=== PATIENT | male | born 1945 | race Caucasian/White ===

== ENCOUNTER 2024-07-26 13:16 | Outpatient (AMB) | payer MEDICARE, SELFPAY ==
--- NOTE | 2024-07-26 13:43 | MHC.OFFVIS ---
Intake Visit Reasons: [employer]/PCP referral for carotid stenosis Intake Note: New patient presents for carotid stenosis. He gets light headed when standing. No dizziness. Accompanied by: Spouse Allergies lisinopril Allergy (Mild, Verified 07/26/24 13:45) Unknown HPI HPI E [employer]/PCP referral for carotid stenosis: Details: The patient is a 79-year-old male presenting with lightheadedness. He describes episodes of lightheadedness occurring during activities such as standing and walking. The symptoms began last fall and have become more noticeable lately, although they do not cause dizziness or balance issues. His past medical history includes a successful repair of retinal tears last February, following issues with vitreous detachment. The carotid ultrasound and CT scan revealed stenosis in the left vertebral artery, but his primary concern remains the persistent lightheadedness. He has not smoked in over four decades, does not have diabetes, and there is no reported history of significant cardiovascular incidents. He now presents for vascular evaluation Review of Systems Const All systems reviewed & are unremarkable except as noted in HPI and below Reports no additional complaints ENT Reports Normal hearing present Card Denies chest pain, Denies chest pain at rest, Denies chest pain with activity and Denies pedal edema Resp Denies cough GI Denies abdominal pain Musc Denies abnormal gait, Denies muscle cramps and Denies radiating pain into limb Skin/Breast Denies skin ulcer and Denies wounds Neuro Reports Normal hearing present and Denies abnormal gait Psych Reports no additional complaints Physical Exam Const General: cooperative, healthy appearing and comfortable Orientation/consciousness: oriented to person, oriented to place and oriented to time HEENT Head: Yes normal to inspection Neck Neck: Yes normal visual inspection Carotids: no bruits Chest Chest palpation & inspection: normal inspection of the chest Resp Effort & Inspection: normal respiratory effort and able to speak in complete sentences Auscultation: clear to auscultation bilaterally, no crackles, no rales, no rhonchi and no wheezes Cardio Rate: regular rate Rhythm: regular rhythm Heart sounds: S1 normal heart sound present and S2 normal heart sound present Bruits: no carotid bruits Peripheral pulses: Peripheral pulses 2+ throughout GI Inspection: Yes normal to inspection Skin Wounds: no wounds Hair: normal Neuro General: oriented to person, oriented to place and oriented to time Cranial nerves: Yes CN's II-XII intact bilaterally and Yes Normal hearing present Cognition (Neuro): normal cognition Motor exam (neuro): 5 motor strength present throughout Extrem Other: venous exam: No significant superficial varicosities or spider telangiectasias, minimal edema General: No clubbing, No cyanosis and No edema Psych Appearance: grossly normal Mental Status: mental status grossly normal Speech and movement: Normal speech and movement present Results Reviewed Results Reviewed: Carotid ultrasound dated 05/27/2024 had suboptimal in visualization cervical arteries. Subsequent to that CAT scan was obtained on 06/10/2024 and this demonstrated no evidence of infarct. No significant stenosis of the carotid arteries. Irregular beaded appearance of left vertebral artery. Assessment & Plan Assessment & Plan (1) Carotid stenosis: Code(s): I65.29 - Occlusion and stenosis of unspecified carotid artery Category: Medical Qualifiers: Laterality: bilateral Qualified Code(s): I65.23 - Occlusion and stenosis of bilateral carotid arteries Plan: I discussed with the patient that the left vertebral artery stenosis, detected in the imaging, is not significantly impacting the carotid circulation to cause the present symptoms. I explained the rationale for consulting an ENT specialist to review potential ear-related causes for his balance symptoms. The necessity of starting a daily baby aspirin was articulated in light of his past smoking history and current plaque presence in vascular imaging. I outlined that a repeat ultrasound will be performed in six months to monitor any changes. Risk-benefit considerations and the non-emergent nature of the findings were addressed, emphasizing that there are no immediate threats to life. Should symptoms continue ENT consultation may benefit. I do not think the vertebral is contributing this and this may even be an element of fibromuscular dysplasia. Once again I do not think this is related to his balance symptoms. He will follow up with us in 6 months time. Orders: Orders US carotid duplex BI 6 Months I65.23 - Occlusion and stenosis of bilateral carotid arteries Coding Level of Care Code Est Pt Level 4 (61774) Complex EM visit Add On G2211 Diagnoses Bilateral carotid artery stenosis I65.23 Laterality: bilateral
== END 2024-07-26 14:24 | disposition home or self-care (01) ==
LOC: HO.HVS 13:16
PROVIDERS: PCP Internal Medicine; Visit Provider Surgery Vascular Surgery
DX: I65.23 Occlusion and stenosis of bilateral carotid arteries (principal)
CPT/HCPCS: 99214; G2211

== ENCOUNTER → 2024-07-26 13:16 | Outpatient (BNVA) | payer MEDICARE, SELFPAY | PROVIDERS: PCP Internal Medicine; Visit Provider Surgery Vascular Surgery | DX: I65.23 Occlusion and stenosis of bilateral carotid arteries (principal) | CPT/HCPCS: 99212 ==

== ENCOUNTER 2025-01-26 11:30 | Outpatient (REF) | payer MEDICARE, SELFPAY ==
--- NOTE | ~2025-01-26 | US_ITS ---
CLINICAL HISTORY: I65.23 - Occlusion and stenosis of bilateral carotid arteries US Bilateral Carotid Duplex Comparison: None provided Findings: No significant plaque within the common carotid arteries. Minimal plaque within the carotid bulbs. Color doppler and spectral tracings normal. Peak systolic velocities: Right CCA: 182 cm/s. Right ICA: 100 cm/s. ICA/CCA ratio: 0.4. Right ECA: Unremarkable. Right vertebral artery flow antegrade. Left CCA: 99 cm/s. Left ICA: 123 cm/s. ICA/CCA ratio: 0.6. Left ECA: Unremarkable. Left vertebral artery flow antegrade. IMPRESSION: Normal carotid velocities, no significant stenosis (0-49% stenosis). This document has been electronically signed by: Prosper Roa MD on 01/27/2025 10:43:44
--- OUTSIDE RECORDS SUMMARY | 2025-01-26 14:50 | XMS_ITS | Clinical Summary ---
Author Organization [facility] Address [address] [address] Phone Care Team Providers Care Janitorial Supervisor Name Role Phone Orlando Simon MD Primary Care Provider [phone] Noel Nicholson MD Unavailable [phone] Cuong Gonsales MD Unavailable [phone] Prosper Burgess MD Unavailable [phone] Abdi Lopez MD Unavailable [phone] MyBeau hong MD Unavailable [phone] Allergies Active Allergy Reactions Criticality Noted Date Comments Lisinopril Angioedema High 09/16/2016 Other reaction(s): angioedema Medications Medication-Free Text Fish Oil 1200 MG Capsule, Si capsule Orally Once a day Active balsalazide (COLAZAL) 750 mg capsule 3 tabs 3 times a day Active polycarbophil (FIBERCON) 625 mg tablet Take 1 tablet by mouth 2 (two) times a day. Active MULTIVIT-MINERALS/FA/L YCOPENE (ONE-A-DAY MEN'S ORAL) ONE DAILY Orally Active tamsulosin (FLOMAX) 0.4 mg Cp24 Take 0.4 mg by mouth daily. Active Ca cit-D3-mag#11-zinc-cup r-man-bor (CALTRATE 600+D) 600 mg calcium- 800 unit-50 mg Tab Take 2 tablets by mouth daily. Active amoxicillin (AMOXIL) 500 MG capsuleIndications:S/P hip replacement, left Take 2 capsules (1,000 mg total) by mouth once as needed. Take 2 capsules 1 hour prior to dental appointment 2 capsule 3 2020 Active acetaminophen (TYLENOL) 650 MG CR tablet Take 1,300 mg by mouth 2 (two) times a day. Active latanoprost (XALATAN) 0.005 % ophthalmic solution INSTILL ONE DROP INTO LEFT EYE AT BEDTIME 2021 Active tadalafiL (CIALIS, ADCIRCA) 20 MG tabletIndications:Erec tile dysfunction Take 1 tablet (20 mg total) by mouth daily as needed. 20 tablet 1 2021 Active aspirin 81 MG EC tablet Take 81 mg by mouth daily. Active LORazepam (ATIVAN) 0.5 MG tabletIndications:Anxi ety about treatment Take 1 tablet (0.5 mg total) by mouth every 6 (six) hours as needed for anxiety. 5 tablet 2024 Active Additional Information Patient not taking.Reported on 12/21/2024 hydroCHLOROthiazide 25 MG tablet TAKE 1 TABLET BY MOUTH EVERY DAY 90 tablet 3 2024 Active prednisoLONE acetate (PRED FORTE) 1 % ophthalmic suspension 2024 Active valsartan (DIOVAN) 320 MG tabletIndications:Esse ntial hypertension TAKE 1 TABLET BY MOUTH DAILY 90 tablet 3 2024 Active pravastatin (PRAVACHOL) 40 MG tabletIndications:Pure hypercholesterolemia TAKE 1 TABLET BY MOUTH DAILY 90 tablet 3 2024 Active amLODIPine (NORVASC) 5 MG tabletIndications:Esse ntial hypertension TAKE 1 TABLET BY MOUTH TWICE A DAY 180 tablet 3 2024 Active amLODIPine (NORVASC) 5 MG tabletIndications:Esse ntial hypertension take 1 tablet by mouth twice a day 180 tablet 3 01/09 Discontinued Active Problems Problem Noted Date Diagnosed Date Right retinal detachment 12/21/2024 Assessment & Plan (12/21/2024 11:56 AM EDT): History of right sided retinal detachment with 2 previous vitrectomy surgeries which were uncomplicated initially but ultimately led to the recurrence of the detachment. The surgery is scheduled on 01/09/2025 with [facility]. His chronic medical conditions are well-managed including his hypertension, hyperlipidemia, ulcerative colitis, and polymyalgia rheumatica. He takes his medications as prescribed without issues. On exam he is hemodynamically stable, lungs are clear and heart is regular rate and rhythm with no murmurs rubs or gallops. EKG was obtained in the office today due to history of right bundle branch block and a vague history of a first- degree AV block, right bundle branch block remained stable in lead V2 but there is no evidence of a first-degree AV block. No evidence of arrhythmias or ST elevations. No lab work is indicated today. I believe that he is cleared to move forward with his upcoming surgery. AUB-HAS2: 1.6% risk of adverse event Chirag: Low risk, 0.4% ACP: Low risk EMAPO: Low risk, less than 3% Class 1 obesity due to exces s calories with serious comorbidity and body mass index (BMI) of 30.0 to 30.9 in adult 06/17/2024 Assessment & Plan (07/17/2024 8:13 PM EDT): Continue diligent portion control particularly in view of gaining 3 pounds from 187 on 02/05/2024 up to 190 today. Limit concentrated sugars, saturated fats and calories in the diet. Keep well-hydrated. If unable to achieve expected goal consider formal dietary/nutritional support. 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 May need to consider formal PT if not better. Topical products such as Arnica, Biofreeze, Aspercreme, Voltaren versus medicated patches such as Salonpas or IcyHot patch may provide additional benefit. If no improvement despite above measures may need to consider local steroid injection COVID-19 02/19/2022 Assessment & Plan (02/19/2022 1:38 PM EST): Overall with mild to moderate symptoms Educated patient regarding natural course of Covid 19, self-quarantine, Supportive Care for Symptoms, Educated regarding risks and benefits of Paxlovid (I.e. no data on potential short/half-way side effects) It does interact with his Tamsulosin, Prednisone and Cialis. I've asked him to hold his Tamsulosin and Cialis till he's done with the Paxolovid However, I told him that he should continue the Prednisone for the PMR. We will monitor for any issues To ER for severe sxs Call if any issues. Patient verbalized understanding and agreement of the above Rotator cuff arthropathy, left 09/27/2021 Assessment & Plan (10/14/2021 11:49 AM EDT): Avoid repetitive pulling or pushing with his shoulders. Use warm packs versus warm shower prior to gentle, regular exercise routine involving climbing the wall and pendulum exercises. Call if symptoms worsening or not improving after at least 3-4 weeks of daily exercising to consider formal PT and/or local steroid injection. S/P hip replacement, left 12/27/2020 Right bundle branch block (RBBB) 11/28/2020 Assessment & Plan (11/28/2020 2:13 PM EDT): Right bundle branch noted on EKG today, unchanged from previous per patient Family history of right bundle branch block 11/11 Arthritis of left hip 11/28/2020 Assessment & Plan (11/28/2020 2:19 PM EDT): Severe arthritis of the left hip with scheduled total left hip arthroplasty December 27 planned elective surgery. EKG showing unchanged right bundle branch block but otherwise no acute or chronic ischemic changes, recent blood work showing good kidney and liver function, normal blood sugar or close to normal. Given his history of ulcerative colitis we would like to obtain a repeat CBC to assess for anemia of chronic condition but also white blood cell count and platelet count. The most recent CBC was done back in September. We will also check a INR/PT as part of the preop work-up. Barring that these labs come back pathological, we feel the patient is a good candidate for the upcoming surgery and does not require any further cardiovascular work-up. He may prior to the surgery 7 days before hand stop the aspirin. He should continue his antihypertensives perioperatively. We note that his ulcerative colitis is currently quiescent. 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 Daily calcium and vitamin D supplementation. Regular weightbearing exercises. Fall prevention strategies. Monitor for multiple side effects including but not limited to mood swings, increased intraocular and systemic pressure, diabetes, osteoporosis, fluid retention, increased appetite, risk of infection, bruising, hair thinning etc. Assessment & Plan (12/15/2023 10:18 AM EDT): Gently taper once improved clinically as tolerated. Daily calcium and vitamin D supplementation. Regular weightbearing exercises. Fall prevention strategies. Monitor for multiple side effects including but not limited to mood swings, increased intraocular and systemic pressure, diabetes, osteoporosis, fluid retention, increased appetite, risk of infection, bruising, hair thinning etc. Assessment & Plan (03/23/2023 10:25 AM EST): Gently taper as tolerated. Daily calcium and vitamin D supplementation. Regular weightbearing exercises. Fall prevention strategies. Monitor for multiple side effects including but not limited to creased risk of infection, hips, knees or jaw osteonecrosis, mood swings, increased intraocular and systemic pressure, diabetes, osteoporosis, fluid retention, increased appetite, bruising, hair thinning etc. Assessment & Plan (10/20/2022 2:52 PM EDT): Gently taper as tolerated. Daily calcium and vitamin D supplementation. Regular weightbearing exercises. Fall prevention strategies. Monitor for multiple side effects including but not limited to creased risk of infection, hips, knees or jaw osteonecrosis, mood swings, increased intraocular and systemic pressure, diabetes, osteoporosis, fluid retention, increased appetite, bruising, hair thinning etc. Assessment & Plan (06/18/2022 12:33 PM EST): Gently taper as tolerated. Daily calcium and vitamin D supplementation. Regular weightbearing exercises. Fall prevention strategies. Monitor for multiple side effects including but not limited to increased risk of hips, knees and jaw osteonecrosis, mood swings, increased intraocular and systemic pressure, diabetes, osteoporosis, fluid retention, increased appetite, risk of infection, bruising, hair thinning etc. Assessment & Plan (03/26/2022 11:16 AM EST): Gently taper as tolerated. Daily calcium and vitamin D supplementation. Regular weightbearing exercises. Fall prevention strategies. Monitor for multiple side effects including but not limited to increased risk of hips, knees and jaw osteonecrosis, mood swings, increased intraocular and systemic pressure, diabetes, osteoporosis, fluid retention, increased appetite, risk of infection, bruising, hair thinning etc. Assessment & Plan (05/30/2021 11:41 AM EST): Gently taper as tolerated. Daily calcium and vitamin D supplementation. Regular weightbearing exercises. Fall prevention strategies. Monitor for multiple side effects including but not limited to increased risk of hips, knees, jaw osteonecrosis, mood swings, increased intraocular and systemic pressure, diabetes, osteoporosis, fluid retention, increased appetite, risk of infection, bruising, hair thinning etc. Assessment & Plan (03/17/2021 6:03 PM EST): Gently taper as tolerated. Daily calcium and vitamin D supplementation. Regular weightbearing exercises. Fall prevention strategies. Monitor for multiple side effects including but not limited to increased risk of hips, knees, jaw osteonecrosis, mood swings, increased intraocular and systemic pressure, diabetes, osteoporosis, fluid retention, increased appetite, risk of infection, bruising, hair thinning etc. Assessment & Plan (12/04/2020 10:22 PM EDT): Gently taper as tolerated. Daily calcium and vitamin D supplementation. Regular weightbearing exercises. Fall prevention strategies. Monitor for multiple side effects including but not limited to increased risk of hips, knees and jaw osteonecrosis, mood swings, increased intraocular and systemic pressure, diabetes, osteoporosis, fluid retention, increased appetite, risk of infection, bruising, hair thinning etc. On statin therapy 11/23/2020 Assessment & Plan (06/17/2024 4:23 PM EST): Monitor for muscle tenderness, swelling and weakness Assessment & Plan (02/27/2022 4:15 PM EST): Monitor for muscle tenderness, swelling and weakness Assessment & Plan (09/27/2021 3:52 PM EDT): Monitor for muscle tenderness, swelling and weakness Assessment & Plan (05/30/2021 11:42 AM EST): Take the lowest dose, with least frequency, for shortest time. Remember to take it always with food. Favor topical over oral preparations. Assessment & Plan (02/27/2021 12:32 PM EST): Monitor for muscle tenderness, swelling and weakness Assessment & Plan (12/04/2020 10:23 PM EDT): Monitor for muscle tenderness, swelling and weakness Primary osteoarthritis involving multiple joints 03/14/2020 Assessment & Plan (06/17/2024 4:22 PM EST): Joint protection, energy conservation. Gentle, regular exercise routine preferably in a warm pool to improve muscle strength around hip girdle and position him better for postsurgical rehabilitation. Avoid falls, injuries, overuse. Keep body weight in ideal range for his height. He may benefit from topical cream such as Arnica, Biofreeze, Aspercreme versus medicated patches such as salonpas, icy hot patch 2-3 times daily and if necessary at bedtime x 3 weeks. Assessment & Plan (02/05/2024 10:09 AM EDT): Joint protection, energy conservation. Gentle, regular exercise routine preferably in a warm pool to improve muscle strength around hip girdle and position him better for postsurgical rehabilitation. Avoid falls, injuries, overuse. Keep body weight in ideal range for his height. He may benefit from topical cream such as Arnica, Biofreeze, Aspercreme versus medicated patches such as salonpas, icy hot patch 2-3 times daily and if necessary at bedtime x 3 weeks. Assessment & Plan (12/11/2023 9:51 AM EDT): Joint protection, energy conservation. Gentle, regular exercise routine preferably in a warm pool to improve muscle strength around hip girdle and position him better for postsurgical rehabilitation. Avoid falls, injuries, overuse. Keep body weight in ideal range for his height. He may benefit from topical cream such as Arnica, Biofreeze, Aspercreme versus medicated patches such as salonpas, icy hot patch 2-3 times daily and if necessary at bedtime x 3 weeks. Assessment & Plan (06/10/2023 8:45 AM EST): Joint protection, energy conservation. Gentle, regular exercise routine preferably in a warm pool to improve muscle strength around hip girdle and position him better for postsurgical rehabilitation. Avoid falls, injuries, overuse. Keep body weight in ideal range for his height. He may benefit from topical cream such as Arnica, Biofreeze, Aspercreme versus medicated patches such as salonpas, icy hot patch 2-3 times daily and if necessary at bedtime x 3 weeks. Assessment & Plan (03/23/2023 10:25 AM EST): Joint protection, energy conservation. Gentle, regular exercise routine preferably in a warm pool to improve muscle strength around hip girdle and position him better for postsurgical rehabilitation. Avoid falls, injuries, overuse. Keep body weight in ideal range for his height. He may benefit from topical cream such as Arnica, Biofreeze, Aspercreme versus medicated patches such as salonpas, icy hot patch 2-3 times daily and if necessary at bedtime x 3 weeks. Assessment & Plan (10/20/2022 2:39 PM EDT): Joint protection, energy conservation. Gentle, regular exercise routine preferably in a warm pool to improve muscle strength around hip girdle and position him better for postsurgical rehabilitation. Avoid falls, injuries, overuse. Keep body weight in ideal range for his height. He may benefit from topical cream such as Arnica, Biofreeze, Aspercreme versus medicated patches such as salonpas, icy hot patch 2-3 times daily and if necessary at bedtime x 3 weeks. Assessment & Plan (06/18/2022 12:32 PM EST): Joint protection, energy conservation. Gentle, regular exercise routine preferably in a warm pool to improve muscle strength around hip girdle and position him better for postsurgical rehabilitation. Avoid falls, injuries, overuse. Keep body weight in ideal range for his height. He may benefit from topical cream such as Arnica, Biofreeze, Aspercreme versus medicated patches such as salonpas, icy hot patch 2-3 times daily and if necessary at bedtime x 3 weeks. Assessment & Plan (02/27/2022 4:13 PM EST): Joint protection, energy conservation. Gentle, regular exercise routine preferably in a warm pool to improve muscle strength around hip girdle and position him better for postsurgical rehabilitation. Avoid falls, injuries, overuse. Keep body weight in ideal range for his height. He may benefit from topical cream such as Arnica, Biofreeze, Aspercreme versus medicated patches such as salonpas, icy hot patch 2-3 times daily and if necessary at bedtime x 3 weeks. Assessment & Plan (09/27/2021 3:53 PM EDT): Joint protection, energy conservation. Gentle, regular exercise routine preferably in a warm pool to improve muscle strength around hip girdle and position him better for postsurgical rehabilitation. Avoid falls, injuries, overuse. Keep body weight in ideal range for his height. He may benefit from topical cream such as Arnica, Biofreeze, Aspercreme versus medicated patches such as salonpas, icy hot patch 2-3 times daily and if necessary at bedtime x 3 weeks. Assessment & Plan (05/30/2021 11:41 AM EST): Joint protection, energy conservation. Gentle, regular exercise routine preferably in a warm pool to improve muscle strength around hip girdle and position him better for postsurgical rehabilitation. Avoid falls, injuries, overuse. Keep body weight in ideal range for his height. He may benefit from topical cream such as Arnica, Biofreeze, Aspercreme versus medicated patches such as salonpas, icy hot patch 2-3 times daily and if necessary at bedtime x 3 weeks. Assessment & Plan (02/27/2021 12:31 PM EST): Joint protection, energy conservation. Gentle, regular exercise routine preferably in a warm pool to improve muscle strength around hip girdle and position him better for postsurgical rehabilitation. Avoid falls, injuries, overuse. Keep body weight in ideal range for his height. He may benefit from topical cream such as Arnica, Biofreeze, Aspercreme versus medicated patches such as salonpas, icy hot patch 2-3 times daily and if necessary at bedtime x 3 weeks. Assessment & Plan (12/04/2020 10:20 PM EDT): Joint protection, energy conservation. Gentle, regular exercise routine preferably in a warm pool to improve muscle strength around hip girdle and position him better for postsurgical rehabilitation. Avoid falls, injuries, overuse. Keep body weight in ideal range for his height. He may benefit from topical cream such as Arnica, Biofreeze, Aspercreme versus medicated patches such as salonpas, icy hot patch 2-3 times daily and if necessary at bedtime x 3 weeks. Assessment & Plan (08/24/2020 3:40 PM EDT): Continue Tylenol Arthritis 650 mg Take one pill PO every 8 hours as needed for OA pain relief of hands, shoulders. Pain of left hand 03/14/2020 Polymyalgia rheumatica 03/01/2019 Assessment & Plan (07/17/2024 8:12 PM EDT): Clinically appears stable though labs reveal mildly elevated CRP. No signs of PMR or GCA. He is symptom-free without prednisone and understands the need for close monitoring in case symptoms reappear. Call if problems or questions. Continue gentle, regular exercise routine, daily walking, fall and fracture prevention strategies. I reviewed with him need for close monitoring possible signs of temporal arteritis such as sudden, severe headache, visual abnormalities or loss, jaw or tongue claudication, fevers, chills night sweats, unexplained weight loss etc. He is educated to call with above concerns and start prednisone 60 mg if severe headache with visual abnormalities or jaw claudication develop. He has no symptoms or radiographic changes suggestive for pulmonary TB. Assessment & Plan (02/05/2024 10:19 AM EDT): Clinically appears stable though labs reveal mildly elevated ESR. He is willing to carefully taper prednisone as tolerated by 1 mg every 2-4 weeks. He requests another pamphlet on Kevzara to review again as steroid sparing medication. I previously provided him with pamphlet on methotrexate on previous visit that may need to be prescribed as a steroid sparing medication versus newly approved biologic DMARD Kevzara (sarilumab)-pamphlet provided. I briefly reviewed with him most frequent side effects of methotrexate including but not limited to increased risk of liver function test elevation, pneumonitis, anemia, leukopenia, increased risk of infection etc. He was informed about need for refraining from alcohol drinking and close monitoring while on methotrexate. Prior to starting methotrexate versus Kevzara (sarilumab) he should be up-to-date on yearly influenza, pneumonia, Shingrix, hepatitis B, COVID-19 and tetanus vaccinations. He fulfilled that requirements and wishes to review again information on Kevzara before adding it to his regimen. I have honestly told him that I cannot assure him that it would prevent another bout of PMR in November 2024 but it may. Call if problems or questions. Continue gentle, regular exercise routine, daily walking, fall and fracture prevention strategies. I reviewed with him need for close monitoring possible signs of temporal arteritis such as sudden, severe headache, visual abnormalities or loss, jaw or tongue claudication, fevers, chills night sweats, unexplained weight loss etc. He is educated to call with above concerns and start prednisone 60 mg if severe headache with visual abnormalities or jaw claudication develop. He has no symptoms or radiographic changes suggestive for pulmonary TB. Assessment & Plan (12/15/2023 10:13 AM EDT): He managed well without any prednisone until a month ago but reports intolerable pain and stiffness within his arms and hands and requests restarting prednisone. He denies any episodes of headaches, visual abnormalities, jaw or tongue claudication. I gave him prescription for prednisone 5 mg to be taken every morning with breakfast and asking her to call back on Thursday- around 2-3 p.m. to report his response. I previously provided him with pamphlet on methotrexate on previous visit that may need to be prescribed as a steroid sparing medication versus newly approved biologic DMARD Kevzara (sarilumab)-pamphlet provided. I briefly reviewed with him most frequent side effects of methotrexate including but not limited to increased risk of liver function test elevation, pneumonitis, anemia, leukopenia, increased risk of infection etc. He was informed about need for refraining from alcohol drinking and close monitoring while on methotrexate. Prior to starting methotrexate versus Kevzara (sarilumab) he should be up-to-date on yearly influenza, pneumonia, Shingrix, hepatitis B, COVID-19 and tetanus vaccinations. Call if problems or questions. Continue gentle, regular exercise routine, daily walking, fall and fracture prevention strategies. I reviewed with him need for close monitoring possible signs of temporal arteritis such as sudden, severe headache, visual abnormalities or loss, jaw or tongue claudication, fevers, chills night sweats, unexplained weight loss etc. He is educated to call with above concerns and start prednisone 60 mg if severe headache with visual abnormalities or jaw claudication develop. He has no symptoms or radiographic changes suggestive for pulmonary TB. Assessment & Plan (06/10/2023 8:57 AM EST): He manages well without any prednisone for almost a month now and denies any episodes of headaches, visual abnormalities, jaw or tongue claudication. I previously provided him with pamphlet on methotrexate on previous visit that may need to be prescribed as a steroid sparing medication should he have difficulty tapering of prednisone again or consideration with next flare. I briefly reviewed with him most frequent side effects of methotrexate including but not limited to increased risk of liver function test elevation, pneumonitis, anemia, leukopenia, increased risk of infection etc. He was informed about need for refraining from alcohol drinking and close monitoring while on methotrexate. Prior to starting methotrexate he should be up-to-date on yearly influenza, pneumonia, Shingrix, hepatitis B, COVID-19 and tetanus sensation. Call if problems or questions. Since he manages well without prednisone he is not going to start any methotrexate. Continue gentle, regular exercise routine, daily walking, fall and fracture prevention strategies. I reviewed with him need for close monitoring possible signs of temporal arteritis such as sudden, severe headache, visual abnormalities or loss, jaw or tongue claudication, fevers, chills night sweats, unexplained weight loss etc. He is educated to call with above concerns and start prednisone 60 mg if severe headache with visual abnormalities or jaw claudication develop. He has no symptoms or radiographic changes suggestive for pulmonary TB. Assessment & Plan (03/23/2023 9:50 PM EST): Carefully taper prednisone by 1 mg every 1-2 weeks as tolerated-see details on the separate instruction sheet. Call if problems or questions. I provided him with pamphlet on methotrexate on previous visit that may need to be prescribed as a steroid sparing medication should he have difficulty tapering of prednisone again. I briefly reviewed with him most frequent side effects of methotrexate including but not limited to increased risk of liver function test elevation, pneumonitis, anemia, leukopenia, increased risk of infection etc. He is informed about need for refraining from alcohol drinking and close monitoring while on methotrexate. Prior to starting methotrexate he should be up-to-date on yearly influenza, pneumonia, Shingrix, hepatitis B, COVID-19 and tetanus sensation. Call if problems or questions. Continue gentle, regular exercise routine, daily walking, fall and fracture prevention strategies. I reviewed with him need for close monitoring possible signs of temporal arteritis such as sudden, severe headache, visual abnormalities or loss, jaw or tongue claudication, fevers, chills night sweats, unexplained weight loss etc. 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 Assessment & Plan (10/20/2022 2:51 PM EDT): Carefully continue current 3 mg prednisone with breakfast x 3-4 wks if no worsening start tapering by 1 mg every 3-4 weeks as tolerated Call if problems or questions. I provided him with pamphlet on methotrexate on previous visit that may need to be prescribed as a steroid sparing medication should he have difficulty tapering of prednisone again. I briefly reviewed with him most frequent side effects of methotrexate including but not limited to increased risk of liver function test elevation, pneumonitis, anemia, leukopenia, increased risk of infection etc. He is informed about need for refraining from alcohol drinking and close monitoring while on methotrexate. Prior to starting methotrexate he should be up-to-date on yearly influenza, pneumonia, Shingrix, hepatitis B, COVID-19 and tetanus sensation. Call if problems or questions. Continue gentle, regular exercise routine, daily walking, fall and fracture prevention strategies. I reviewed with him need for close monitoring possible signs of temporal arteritis such as sudden, severe headache, visual abnormalities or loss, jaw or tongue claudication, fevers, chills night sweats, unexplained weight loss etc. Assessment & Plan (07/01/2022 2:12 PM EDT): Carefully continue current 5 mg prednisone with breakfast x 3-4 wks if no worsening start tapering by 1 mg every 3-4 weeks as tolerated-see details on a separate instruction sheet with today's date. I provided him with pamphlet on methotrexate that may need to be prescribed as a steroid sparing medication should he have difficulty tapering of prednisone again. I briefly reviewed with him most frequent side effects of methotrexate including but not limited to increased risk of liver function test elevation, pneumonitis, anemia, leukopenia, increased risk of infection etc. He is informed about need for refraining from alcohol drinking and close monitoring while on methotrexate. Prior to starting methotrexate he should be up-to-date on yearly influenza, pneumonia, Shingrix, hepatitis B, COVID-19 and tetanus sensation. Call if problems or questions. Continue gentle, regular exercise routine, daily walking, fall and fracture prevention strategies. I reviewed with him need for close monitoring possible signs of temporal arteritis such as sudden, severe headache, visual abnormalities or loss, jaw or tongue claudication, fevers, chills night sweats, unexplained weight loss etc. Assessment & Plan (03/26/2022 11:21 AM EST): Carefully continue current 7.5 mg prednisone with breakfast until 03/23/2022 then if no worsening start tapering by 1-1.5 mg every 3-4 weeks as tolerated-see details on a separate instruction sheet with today's date. I provided him with pamphlet on methotrexate that may need to be prescribed as a steroid sparing medication should he have difficulty tapering of prednisone again. I briefly reviewed with him most frequent side effects of methotrexate including but not limited to increased risk of liver function test elevation, pneumonitis, anemia, leukopenia, increased risk of infection etc. He is informed about need for refraining from alcohol drinking and close monitoring while on methotrexate. Prior to starting methotrexate he should be up-to-date on yearly influenza, pneumonia, Shingrix, hepatitis B, COVID-19 and tetanus sensation. Call if problems or questions. Continue gentle, regular exercise routine, daily walking, fall and fracture prevention strategies. I reviewed with him need for close monitoring possible signs of temporal arteritis such as sudden, severe headache, visual abnormalities or loss, jaw or tongue claudication, fevers, chills night sweats, unexplained weight loss etc. Assessment & Plan (10/14/2021 11:48 AM EDT): He is ready to continue gentle, regular exercise routine, daily walking, fall and fracture prevention strategies since he does not require prednisone. I reviewed with him need for close monitoring possible signs of temporal arteritis such as sudden, severe headache, visual abnormalities or loss, jaw or tongue claudication, fevers, chills night sweats, unexplained weight loss etc. We both hope that he will be able to enjoy his health without return of either PMR or GCA/TA Assessment & Plan (06/04/2021 8:46 AM EST): He is ready to gently taper prednisone down by 1 mg every 3-4 weeks as tolerated to complete cessation. I previously spoke to him about possible need for adding methotrexate as steroid sparing medication in case he redevelops flare while tapering prednisone below 3 mg daily. I provided him with pamphlet on its side effects and reviewed with him most frequent side effects including but not limited to risk of lung inflammation including damage, liver inflammation including failure, GI disturbance, mouth ulcers etc. He was asked to read the pamphlet and write his questions for discussion at next visit or if necessary earlier. We both hope that he will be able to taper prednisone smoothly and not have to start taking methotrexate. Assessment & Plan (03/17/2021 6:07 PM EST): He is ready to gently taper prednisone down by 1 mg every 3-4 weeks as tolerated. I spoke to him about possible need for adding methotrexate as steroid sparing medication in case he redevelops flare while tapering prednisone below 3 mg daily. I provided him with pamphlet on its side effects and reviewed with him most frequent side effects including but not limited to risk of lung inflammation including damage, liver inflammation including failure, GI disturbance, mouth ulcers etc. He is asked to read the pamphlet and write his questions for discussion at next visit or if necessary earlier. We both hope that he will be able to taper prednisone smoothly and not have to start taking methotrexate. Assessment & Plan (12/04/2020 10:19 PM EDT): He is ready to taper prednisone down to 5 mg starting on Thursday-11/26/2020 and decrease gently to 4 mg in 2-3 weeks. Subsequent decrease should be by 1 mg every 2-3 weeks as tolerated. I spoke to him about possible need for adding methotrexate as steroid sparing medication in case he redevelops flare while tapering prednisone below 3 mg daily. I provided him with pamphlet on its side effects and reviewed with him most frequent side effects including but not limited to risk of lung inflammation including damage, liver inflammation including failure, GI disturbance, mouth ulcers etc. He is asked to read the pamphlet and write his questions for discussion at next visit or if necessary earlier. Assessment & Plan (11/28/2020 2:16 PM EDT): Patient on a very low dose of prednisone at this time and level of inflammation according to his symptoms appears to be low. This should not be a factor on the upcoming surgery. Assessment & Plan (08/24/2020 3:40 PM EDT): Patient taking Prednisone 3 mg PO daily for PMR therapy. He will continue to taper medication with taper schedule from PCP. Stable on exam today. BPH (benign prostatic hyperplasia) 08/31/2018 Assessment & Plan (02/19/2022 1:40 PM EST): As discussed, hold Tamsulosin due to possible drug-drug effect Adverse effect of angiotensin-converting enzyme inhibitor 08/18/2017 Allergic rhinitis 08/18/2017 Angioedema 08/18/2017 Male erectile disorder 08/18/2017 Erectile dysfunction 08/18/2017 Assessment & Plan (02/19/2022 1:42 PM EST): See above re cialis and drug drug interaction Essential hypertension 08/18/2017 Assessment & Plan (02/19/2022 1:39 PM EST): Patient to monitor for lightheadedness, etc. Stay hydrated Assessment & Plan (11/28/2020 2:13 PM EDT): Hypertension well controlled with current listed antihypertensives. Denies side effects No change to dosing. Low Sodium diet reinforced. Continue to monitor condition. Hypertension 08/18/2017 Hyperlipidemia 08/18/2017 Assessment & Plan (11/28/2020 2:14 PM EDT): Patient managed with pravastatin for dyslipidemia, most recent lipid profile within target range. Impaired fasting glucose 08/18/2017 Assessment & Plan (11/28/2020 2:15 PM EDT): Recent A1c at 6.1% in prediabetic range with history of prednisone for polymyalgia rheumatica. Recent dosing of prednisone tapered below 7.5 mg. We should follow the A1c at least every 6 months, counseled the patient on a diabetic diet regarding fiber intake, reduced intake of grains and Pasta, exercise when hip replacement occurs. Ulcerative colitis 08/18/2017 Assessment & Plan (06/17/2024 4:23 PM EST): Continue balsalazide as prescribed and close follow-up with pecan gatherer as scheduled Interval colonoscopy on 06/25/2023 was normal. Assessment & Plan (02/05/2024 10:09 AM EDT): Continue balsalazide as prescribed and close follow-up with pecan gatherer as scheduled Interval colonoscopy on 06/25/2023 was normal. Assessment & Plan (12/15/2023 10:17 AM EDT): Continue balsalazide as prescribed and close follow-up with pecan gatherer as scheduled Interval colonoscopy on 06/25/2023 was normal. Assessment & Plan (06/10/2023 8:46 AM EST): Continue balsalazide as prescribed and close follow-up with pecan gatherer as scheduled He is scheduled for interval colonoscopy on 06/25/2023. Assessment & Plan (03/23/2023 9:51 PM EST): Continue balsalazide as prescribed and close follow-up with pecan gatherer as scheduled He is scheduled for interval colonoscopy on 06/25/2023. Assessment & Plan (06/18/2022 12:33 PM EST): Continue balsalazide as prescribed and close follow-up with pecan gatherer as scheduled Assessment & Plan (02/27/2022 4:15 PM EST): Continue balsalazide as prescribed and close follow-up with pecan gatherer as scheduled Assessment & Plan (10/14/2021 11:49 AM EDT): Continue balsalazide as prescribed and close follow-up with pecan gatherer as scheduled Assessment & Plan (02/27/2021 12:31 PM EST): Continue balsalazide as prescribed and close follow-up with pecan gatherer as scheduled Assessment & Plan (12/04/2020 10:21 PM EDT): Continue balsalazide as prescribed and close follow-up with pecan gatherer as scheduled Pure hypercholesterolemia 08/18/2017 Osteoarthritis 08/18/2017 Nocturia 08/18/2017 Resolved Problems Problem Noted Date Diagnosed Date Resolved Date Aspirin long-term use 05/30/20212021 Assessment & Plan (05/30/2021 11:41 AM EST): Avoid falls, injuries and cuts. Monitor for excessive bruising and bleeding. Encounters Date Type Department Care Team Description 01/09/2025 Refneela Mccabe [facility] Internal Medicine [address] [place] [address] Orlando Simon MD Medication Refill 01/02/2025 8:28 AM EDT - 01/02/2025 11:59 PM EDT Hospital Encounter [facility] [address] [place] [address] Erinn Sheth MD Discharge Disposition: Home or Self Care 12/21/2024 11:20 AM EDT Office Visit [facility] Internal Medicine [address] [place] [address] Lissy Mena PA-C Right retinal detachment (Primary Dx) 12/21/2024 Telephone [facility] Internal Medicine [address] [place] [address] Orlando Simon MD Request For Order(s) 11/29/2024 Telephone [facility] Internal Medicine [address] [place] [address] Orlando Simon MD Pre-op Education/coordinat ion (Needs appt) 11/11/2024 Telephone [facility] Internal Medicine [address] [place] [address] Orlando Simon MD Referral 11/08/2024 Refill [facility] Internal Medicine [address] [place] [address] Orlando Simon MD Medication Refill from Last 3 Months Immunizations Immunization Administration Dates Next Due COVID-19 (Pre-02/02) Moderna Vaccine, mRNA, PF 06/27/2020,05/30/2020 INFLUENZA, SPLIT VIRUS, TRIV ALENT W/ PRESERVATIVE IM 01/17/2015,02/04/2012,03/03/2011 Influenza High-Dose Quadriva lent Preservative Free IM 12/02/2022,02/04/2022,12/28/2020 Influenza High-Dose Trivalen t Preservative Free IM 12/21/2023,12/31/2018,02/18/2018,01/21,01/06/2014,02/25/2013 Influenza Quadrivalent Adjuv anted Preservative Free IM 01/06/2020 Influenza, Unspecified Formulation 01/06/2020,,03/01/2008 Pneumococcal conjugate PCV13 12/11/2014 Pneumococcal polysaccharide PPSV23 09/03/2021, RSV Vaccine (monovalent, adjuvanted) 01/15/2024 Td (adult) 5 Lf Tetanus Toxo id, PF, Adsorbed 09/11/2001 Tdap 01/15/2024,10/17/2011 Zoster live 06/11/2008 Zoster recombinant 09/30/2021,07/22/2021 Family History Medical History Relation Comments Stroke Daughter 1 Diabetes Sister 2 Relation Status Comments Daughter 1 Alive had cva neuropat hy Daughter 2 Alive Father (Age 73) copd and chf Mother (Age 88) dementia Sister 1 (Age 65) bowel disease Sister 2 Social History Tobacco Use Types Packs/Day Years Used Date Smoking Tobacco: Former Cigarettes 1 25 0 08/06/1958 - 08/07/1983 Smokeless Tobacco: Never Tobacco Cessation:Counseling Given: Not Answered Comments:quit 1983 Alcohol Use Standard Drinks/Week Comments Yes 0 (1 standard drink = 0.6 oz pure alcohol) couple drinks (beer or liquor) once every few months, if that; socially Education Answer Date Recorded Are you interested in more education? Not on remberto e 08/08/2022 Are you concerned about learning? Not on file 08/08/2022 No 08/08/2022 No 08/08/2022 Digital Access Answer Date Recorded No 09/08/2022 No 09/08/2022 Reliable internet access at home? Not on file 09/08/2022 Device with a working camera? Not on file Intimate Partner Violence Answer Date R ecorded Denied Basic Needs Not on file 05/07/2024 In the past 12 months have y ou been in a relationship with a person who hurts, threatens, or tries to control you? No 05/07/2024 Worried food would run out Not on file 05/07 In the past 12 months have y ou been in a relationship with a person who hurts, threatens, or tries to control you? No 05/07/2024 Sex and Gender Information Value Date Recorded Sex Assigned at Male 08/22/2021 6:58 PM EDT Legal Sex Male 10:08 PM EDT Gender Identity Male 08/22/2021 6:58 PM EDT Sexual Orientation Straight 08/22/2021 6: 58 PM EDT Last Filed Vital Signs Vital Sign Reading Time Taken Comments Blood Pressure 138/72 12/21/2024 11:15 AM EDT Pulse 70 12/21/2024 11:15 AM EDT Temperature 36.2 C (97.2 F) 12/21/2024 11:15 AM EDT Respiratory Rate 17 12/21/2024 11:1 5 AM EDT Oxygen Saturation 94% 12/21/2024 11: 15 AM EDT Inhaled Oxygen Concentration - - Weight 86.1 kg (189 lb 14.4 oz) 025 11:15 AM EDT Height 168.2 cm (5' 6.22 ) 12/21/2024 1 1:15 AM EDT Body Mass Index 30.45 12/21/2024 11:15 AM EDT Plan of Treatment Upcoming Encounters Date Type Department Care Team (Late st Contact Info) Description 04/28/2025 1:30 PM EST Office Visit [facility] Internal Medicine [address] [place] [address] Orlando Simon MD [address] [place] [address] [email or web address] Health Maintenance Due Date Last Done Comments COLOGUARD 1990 FIT TEST 1990 FOBT 1990 SIGMOIDOSCOPY 1990 VIRTUAL COLONOSCOPY 1990 INFLUENZA VACCINE (#1) 2024 , 12/02/2022, 02/04/2022, Additional history exists COVID-19 VACCINE ( season) 2024 12/29/2023, 01/09/2023, 02/04/2022, Additional history exists DEPRESSION SCREENING 05/07/2025 05/07/2024 LIPID PANEL 06/02/2025 06/02/2024, 11/11, 09/19/2022, Additional history exists BLOOD PRESSURE 06/20/2025 12/21/2024 COLONOSCOPY 06/24/2025 06/25/2023, 03/0 10/2021, 06/17/2021, Additional history exists COLORECTAL CANCER SCREENING 06/24/2025 CREATININE LEVEL 01/02/2026 01/02/2025, , 06/02/2024, Additional history exists POTASSIUM LEVEL 01/02/2026 01/02/2025, 08/12, 06/02/2024, Additional history exists Adult Td,Tdap Booster 01/14/2034 01/15/2024 , 10/17/2011, 09/11/2001 HEPATITIS C SCREENING Completed 03/01/2019 PNEUMOCOCCAL VACCINES (50+ years) Completed 09/03/2021, 12/11/2014, 03/11/2010 ZOSTER VACCINES Completed 09/30/2021, 07/12, 06/11/2008 RSV VACCINE Completed 01/15/2024 SMOKING STATUS SCREENING (Once After 26 Yrs) Completed 12/21/2024 HEPATITIS A VACCINES Aged Out No long er eligible based on patient's age to complete this topic HIB VACCINES Aged Out No longer eligi ble based on patient's age to complete this topic MENINGOCOCCAL VACCINES (ACWY) Aged Out No longer eligible based on patient's age to complete this topic MENINGOCOCCAL VACCINES (B) Aged Out N o longer eligible based on patient's age to complete this topic Medical Devices Implanted Type Area Production Broacher Device Identifier Shelf Expiration Date Model / Serial / Lot Lens Lens Bilatera l: Eye Screw Bone 6.5x25mm Hip Acetabular Dome G7 Low Profile - [id number] Implanted:Qty: 1 on 12/27/2020 by Faisal Moyer MD at [facility] Left: Hip [employer] 09/20/2029 [id number] / / [id number] Screw Bone 6.5x40mm Hip Dome G7 Acetabular Low Profile - [id number] Implanted:Qty: 1 on 12/27/2020 by Faisal Moyer MD at [facility] Left: Hip [employer] 03/21/2030 [id number] / / [id number] Shell Acetabular 50mm 3 Hole G7 Osseoti Size D - [id number] Implanted:Qty: 1 on 12/27/2020 by Faisal Moyer MD at [facility] Left: Hip [employer] 09/16/2030 [id number] / / [id number] Hip Liner 36mm D Acetabular Neutral G7 Longevity - [id number] Implanted:Qty: 1 on 12/27/2020 by Faisal Moyer MD at [facility] Left: Hip [employer]RIST[employer]AL / DIV OF [employer]You 11/11/2023 [id number] / / [id number] Hip Stem 1.6t408at Echo Titanium Bimetric Porous Collarless Lateralized Offset Proximalimal - [id number] Implanted:Qty: 1 on 12/27/2020 by Faisal Moyer MD at [facility] Left: Hip [employer] 05/27/2028 [id number] / / [id number] Hip 6mm 36 Biolox Delta Ceramic Modular Plus - [id number] Implanted:Qty: 1 on 12/27/2020 by Faisal Moyer MD at [facility] Left: Hip [employer] 05/06/2028 [id number] / / [id number] Procedures Procedure Name Priority Date/Time Associated Diagnosis Comments COMPREHENSIVE METABOLIC PANEL Routine 01/02/2025 8:46 AM EDT Polymyalgia rheumatica [facility] current use of systemic steroids C-REACTIVE PROTEIN Routine 01/02/2025 8: 46 AM EDT Polymyalgia rheumatica [facility] current use of systemic steroids SEDIMENTATION RATE (ESR) Routine 01/02/2025 8:46 AM EDT Polymyalgia rheumatica [facility] current use of systemic steroids CBC AND DIFFERENTIAL Routine 01/02/2025 8:46 AM EDT 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 LIPID PANEL Routine 06/02/2024 8:05 AM EST Pure hypercholesterolemia HM COLONOSCOPY FOR RESULT ENTRY ONLY Routine 06/25/2023 11:12 AM EDT HEPATITIS C ANTIBODY, QUALITATIVE Routine 03/01/2019 9:41 AM EST Need for hepatitis C screening test from Last 3 Months or Most Recently Relevant to Health Maintenance Results * Comprehensive metabolic panel (01/02/2025 8:46 AM EDT) SODIUM 140 133 - 146 mmol/L [facility] POTASSIUM 4.3 3.3 - 5.1 mmol/L [facility] CHLORIDE 103 96 - 108 mmol/L [facility] CO2 25 21 - 35 mmol/L [facility] BUN 17 6 - 19 mg/dL [facility] CREATININE 0.90 0.5 - 1.5 mg/dL [facility] GLUCOSE 97 70 - 99 mg/dL [facility] ALBUMIN 4.1 3.9 - 4.8 g/dL [facility] TOTAL PROTEIN 7.1 6.5 - 8.0 g/dL [facility] CALCIUM 9.6 8.4 - 10.3 mg/dL [facility] ALKALINE PHOSPHATASE 92 39 - 117 U/L [facility] TOTAL BILIRUBIN 0.4 0.0 - 1.2 mg/dL [facility] AST 22 0 - 37 U/L [facility] ALT 17 0 - 40 U/L [facility] GLOBULIN 3.0 1 - 4.8 g/dL [facility] EGFR 87 >59 mL/min/1.7 3m2 [facility] Comment:Estimated glomerular filtration rate calculated using the CKD-EPI refit equation. ANION GAP 16 10 - 20 mmol/L [facility] Blood 01/02/2025 8:46 AM EDT 01/02/2025 8:47 AM EDT us Erinn Sheth MD LAB BLOOD ORDERABLES Fin al Result [facility] [address] [place] [address] * Sedimentation rate (ESR) (01/02/2025 8:46 AM EDT) ESR 13 0 - 20 mm/h [facility] Blood 01/02/2025 8:46 AM EDT 01/02/2025 8:47 AM EDT us Erinn Sheth MD LAB BLOOD ORDERABLES Fin al Result [facility] [address] [place] [address] * (ABNORMAL) CBC and differential (01/02/2025 8:46 AM EDT) WBC 7.09 4.00 - 11.00 K/uL [facility] RBC 5.10 4.50 - 5.90 M/uL [facility] HGB 14.7 13.5 - 17.5 g/dL [facility] HCT 46.1 41.0 - 53.0 % [facility] PLT 223 150 - 450 K/uL [facility] MCV 90.4 80.0 - 100.0 fL [facility] MCH 28.8 27.0 - 31.0 pg [facility] MCHC 31.9(L) 32.0 - 36.0 g/dL [facility] RDW 14.2 11.5 - 14.5 % [facility] MPV 9.6 8.4 - 12.0 fL [facility] NRBC 0.00 0.00 /100 WBCs [facility] ABSOLUTE NRBC 0.00 0.00 K/uL [facility] DIFF METHOD Auto [facility] NEUTS 75.5 48.0 - 76.0 % [facility] LYMPHS 10.4(L) 18.0 - 41.0 % [facility] MONOS 9.3 4.0 - 11.0 % [facility] EOS 3.9 0.0 - 5.0 % [facility] BASOS 0.8 0.0 - 1.5 % [facility] Granulocytes, immature (%) 0.1 0.0 - 0.9 % [facility] ABSOLUTE NEUTS 5.34 1.92 - 7.60 K/uL [facility] ABSOLUTE LYMPHS 0.74 0.72 - 4.10 K/uL [facility] ABSOLUTE MONOS 0.66 0.16 - 1.10 K/uL [facility] ABSOLUTE EOS 0.28 0.00 - 0.50 K/uL [facility] ABSOLUTE BASOS 0.06 0.00 - 0.15 K/uL [facility] Granulocytes, immature 0.01 0.00 - 0.09 K/uL [facility] Blood 01/02/2025 8:46 AM EDT 01/02/2025 8:47 AM EDT Erinn Sheth MD LAB BLOOD ORDERABLES Fin al Result Performing Organization Address City/[facility]/ZIP Co de Phone Number [address] [address] * C-Reactive Protein (01/02/2025 8:46 AM EDT) C REACTIVE PROTEIN <3.0 0.0 - 4.0 mg/L [facility] Blood 01/02/2025 8:46 AM EDT 01/02/2025 8:47 AM EDT Erinn Sheth MD LAB BLOOD ORDERABLES Fin al Result Performing Organization Address City/[facility] Co de Phone Number [address] [address] * Lipid panel (06/02/2024 8:05 AM EST) HDL 41 mg/dL [facility] Comment: Interpretation <40 mg/dL: Low HDL cholesterol (major risk factor for CHD) Greater than or equal to 60 mg/dL: High HDL cholesterol ( negative risk factor for CHD) HDL - cholesterol is affected by a number of factors, e.g. smoking, excerise, hormones, sex and age. CHOLESTEROL 150 0 - 240 mg/dL [facility] TRIGLYCERIDES 127 30 - 160 mg/dL [facility] LDL 84 50 - 129 mg/dL [facility] Comment: LDL levels in terms of risk for coronary heart disease: <100 mg/dL: Optimal 100-129 mg/dL: Near or above optimal 130-159 mg/dL: Borderline high 160-189 mg/dL: High >190 mg/dL: Very High CARDIAC RISK RATIO 3.7 3.4 - 5.0 C [facility] Blood 06/02/2024 8:05 AM EST 06/02/2024 8:14 AM EST Orlando Simon MD LAB BLOOD ORDERABLES Final Re sult Performing Organization Address City/[facility] Co de Phone Number [address] [address] * COLONOSCOPY FOR RESULT ENTRY ONLY (06/25/2023 11:12 AM EDT) Historical Provider HEALTH MAINTENANCE Edited Result - Final * Hepatitis C antibody, qualitative (03/01/2019 9:41 AM EST) HCV NON-REACTIV E NON-REACTI VE [facility] Blood 03/01/2019 9:41 AM EST 03/01/2019 9:45 AM EST Orlando Simon MD LAB BLOOD ORDERABLES Final Re sult Performing Organization Address [facility] Co de Phone Number [address] [address] from Last 3 Months or Most Recently Relevant to Health Maintenance Insurance [employer] P[employer]ED [employer] REPLACEMENT MEDICARE PART A & B [employer] REPLACEMENT MEDICARE PART A & [place] [address] [place] [address] MEDICARE PREFERRED HMO REPLACEMENT MEDICARE PART A & B [employer] REPLAC[employer] MEDICARE PART A & B [employer] REPLAC[employer] MEDICARE PART A & B [employer] REPLACEMENT [employer] REPLAC[employer] MEDICARE PART A & B [employer] REPLACEMENT MEDICARE PART A & B [employer] REPLACEMENT MEDICARE PART A & B Advance Directives For more information, please contact: [phone] (9AM - 5PM [facility], Thursday-Thursday) Documents on File Type Date Recorded Patient Presales Consultant Expl anation Healthcare Proxy 12/07/2020 HEALTHCARE PROXY * Full Code (Latest Code Status on File) Date Activated Date Inactivated Comments 12/27/2020 11:38 AM Question Answer Comments Code Status Confirmed With: Patient * Full Code Date Activated Date Inactivated Comments 12/27/2020 6:30 AM 12/27/2020 11:38 AM Question Answer Comments Code Status Confirmed With: Patient Care Teams Janitorial Supervisor Relationship Specialty Start Date End Date Orlando Simon MD [address] [place] [address] PCP - General 01/27/17 Noel Nicholson MD [address] [address] Gastroenterology 04/21/19 Cuong Gonsales MD 673 [place] [address] Dermatology 09/02/19 Prosper Burgess MD 10 [facility] 2 [place] [address] [email or web address] Gastroenterology 02/21/20 Abdi Lopez MD 100 [facility] 120 [place] [address] [email or web address] Urology 02/21/20 Beau Hernandez MD 3640 [facility] 201 [place] [address] Ophthalmology 10/21/24 Additional Source Comments The information contained in this document represents components of the legal health record. It is not the complete legal health record.[facility]
--- OUTSIDE RECORDS SUMMARY | 2025-01-26 14:51 | XMS_ITS | Patient Health Record ---
Author Organization [facility] Address 81 [facility] [place] [address] Care Team Providers Care Assembler Leather Goods Name Role Phone Orlando Simon MD Primary Care Provider Unavaila ble Finn, Fifi Unavailable [phone] Reason For Referral No Information Medications Medication SIG (Take, Route, Frequency, Duration) Notes Start Date End Date Status Multi Vitamin Mens Orally A ctive Fiber Complete Orally Activ e Maria A Aspirin EC Low Dose 81 MG 1 tablet Orally Once a day Active Flomax 0.4 MG 1 capsule 30 minutes after the same meal each day Orally Once a day Active Cialis 20 MG 1 tablet Orally A ctive Pravastatin Sodium 40 MG 1 tablet Orally Once a day Active hydroCHLOROthiazide 12.5 MG 1 capsule Or ally Once a day Active Lisinopril 20 MG 1 tablet Orally TWIC E A DAY Active Balsalazide Disodium 750 MG 3 capsules O rally Three times a day Active Problems Problem Type SNOMED Code ICD Code Onset Dates Problem Status W/U Status Risk Notes Problem Bursitis (56641548) Bursitis (727.3) Active confirmed Problem Myositis (16550434) Myositis (729.1) Active confirmed Problem Pain in limb (13419921) Pain in Limb (729.5) Active confirmed Problem Plantar fasciitis (847371661) Plantar Fasciitis (728.71) Active confirmed Problem Calcaneal spur (32842348) Calcaneal spur (726.73) Active confirmed Plan Of Treatment Pending Test Test Name Order Date ,[id number] TENDON SHEATH/LIGAMENT 0 07/17/2014 Insurance Providers Payer Name Payer Address Payer Phone Subscriber Number Group Number Insured Name Patient Relationship to Insured Coverage Start Date Coverage End Date [employer] Preferred [address] [place] [id number] [phone] [id number] Dixon Saldaña Self - patient is the insured Medical (General) History Medical History History ICD Code Chicken pox Arthritis Crohns disease High blood pressure Surgical History Surgery Date(Month/Year) kidney stones
--- OUTSIDE RECORDS SUMMARY | 2025-01-26 14:51 | XMS_ITS | Encounter Summary ---
Author Organization [facility] Address [address] [address] Phone Care Team Providers Care Data Processing Specialist Name Role Phone Orlando Simon MD Primary Care Provider Orlando Simon MD Unavailable [phone] Ceci Brasher [facility] [employer] Unavailable [phone] Noel Nicholson MD Unavailable [phone] Cuong Gonsales MD Unavailable [phone] Prosper Burgess MD Unavailable [phone] Abdi Lopez MD Unavailable [phone] Beau Hernandez MD Unavailable + [phone] Encounter Details Date Type Department Care Team (Late st Contact Info) Description 12/21/2018 Ancillary Orders [facility] Internal Medicine 40 [place], [place] [phone] Orlando Simon MD 40 [place] [address] [email or web address] Social History Tobacco Use Types Packs/Day Years Used Date Smoking Tobacco: Former Cigarettes 1 25 0 08/06/1958 - 08/07/1983 Smokeless Tobacco: Never Comments:quit 1983 Alcohol Use Standard Drinks/Week Comments Yes 2 (1 standard drink = 0.6 oz pur e alcohol) Sex and Gender Information Value Date Recorded Sex Assigned at Male 08/22/2021 6:58 PM EDT Legal Sex Male 10:08 PM EDT Gender Identity Male 08/22/2021 6:58 PM EDT Sexual Orientation Straight 08/22/2021 6: 58 PM EDT documented as of this encounter Plan of Treatment Upcoming Encounters Date Type Department Care Team (Late st Contact Info) Description 04/28/2025 1:30 PM EST Office Visit [facility] Internal Medicine 40 [place] [address] Orlando Simon MD 40 [place] [address] documented as of this encounter Visit Diagnoses Not on filedocumented in this encounter Additional Health Concerns Assessment Noted Time PHQ-2 Depression Total Score: 0 09/01/19 19 9:13 AM EDT documented as of this encounter Care Teams Data Processing Specialist Relationship Specialty Start Date End Date Orlando Simon MD 40 [place] [address] PCP - General 01/27/17 Orlando Simon MD 40 [place] [address] Historical LMR Provider 01/31/17 04/20/19 Ceci Brasher NP [address] [place] [address] Historical LMR Provider 01/31/17 04/20/19 [place] [address] [place] [address] Gastroenterology 04/21/19 Cuong Gonsales MD 676 [place] [address] Dermatology 09/02/19 Prosper Burgess MD 10 [facility] 2 [place] [address] [email or web address] Gastroenterology 02/21/20 Abdi Lopez MD 100 [facility] 120 [place] [address] [email or web address] Urology 02/21/20 Beau Hernandez MD 3640 [facility] 201 [place] [address] Ophthalmology 10/21/24 documented as of this encounter Additional Source Comments The information contained in this document represents components of the legal health record. It is not the complete legal health record.[facility]
--- OUTSIDE RECORDS SUMMARY | 2025-01-26 14:51 | XMS_ITS | Encounter Summary ---
Author Organization [facility] Address [address] [address] Phone Care Team Providers Care Laundry Or Dry Cleaners Counter Clerk Name Role Phone Orlando Simon MD Primary Care Provider [phone] Noel Nicholson MD Unavailable [phone] Cuong Gonsales MD Unavailable [phone] Prosper Burgess MD Unavailable [phone] Abdi Lopez MD Unavailable [phone] Beau Hernandez MD Unavailable [phone]- [phone] Encounter Details Date Type Department Care Team (Latest Contact Info) Description 07/12/2020 Transcribe Orders [facility] 22 [place], [place] [phone] Orlando Simon MD [address] [place] [id number] PMR (polymyalgia rheumatica) (Primary Dx) Social History Tobacco Use Types Packs/Day Years [...] Description 04/28/2025 1:30 PM EST Office Visit [facility] Internal Medicine 40 [place] [address] Orlando Simon MD 40 [place] [address] [email or web address] documented as of this encounter Results * C-Reactive Protein (07/12/2020 9:45 AM EDT) C REACTIVE PROTEIN <3.0 0.0 - 4.0 mg/L [facility] Blood 07/12/2020 9:45 AM EDT 07/12/2020 9:46 AM EDT us Orlando Simon MD LAB BLOOD ORDERABLES Final Re sult Performing Organization Address [facility]/ZIP Co de Phone Number [address] [address] * Sedimentation rate (ESR) (07/12/2020 9:45 AM EDT) ESR 10 0 - 20 mm/h [facility] Blood 07/12/2020 9:45 AM EDT 07/12/2020 9:46 AM EDT us Orlando Simon MD LAB BLOOD ORDERABLES Final Re sult Performing Organization Address City/[facility]/ZIP Co de Phone Number [address] [address] * CBC (07/12/2020 9:45 AM EDT) WBC 7.22 4.00 - 11.00 K/uL [facility] RBC 5.17 3.90 - 5.69 M/uL [facility] HGB 14.5 12.4 - 17.3 g/dL [facility] HCT 45.3 37.0 - 51.0 % [facility] PLT 220 140 - 430 K/uL [facility] MCV 87.6 78.0 - 97.0 fL [facility] MCH 28.0 25.0 - 33.0 pg [facility] MCHC 32.0 32.0 - 36.0 g/dL [facility] RDW 14.4 11.0 - 15.0 % [facility] MPV 10.7 8.4 - 12.8 [facility] NRBC 0.00 0 /100 WBCs [facility] ABSOLUTE NRBC 0.00 0 K/uL [facility] Blood 07/12/2020 9:45 AM EDT 07/12/2020 9:46 AM EDT us Orlando Simon MD LAB BLOOD ORDERABLES Final Re sult Performing Organization Address City/State/[facility] Co de Phone Number [address] [address] documented in this encounter Visit Diagnoses Diagnosis PMR (polymyalgia rheumatica)- Primary Polymyalgia rheumatica documented in this encounter Additional Health Concerns Assessment Noted Time PHQ-2 Depression Total Score: 0 09/02/19 3:00 PM EDT documented as of this encounter Care Teams Laundry Or Dry Cleaners Counter Clerk Relationship Specialty Start Date End Date Orlando Simon MD 40 [place] [address] [email or web address] PCP - General 01/27/17 ZeroNoel aj MD [address] [address] Gastroenterology 04/21/19 Cuong Gonsales MD 673 [place] [address] Dermatology 09/02/19 Prosper Burgess MD 10 [facility] 2 [place] [address] [email or web address] Gastroenterology 02/21/20 Abdi Lopez MD 100 [facility] 120 [place] [address] [email or web address] Urology 02/21/20 Beau Hernandez MD 3640 [facility] 201 [place] [address] Ophthalmology 10/21/24 documented as of this encounter Additional Source Comments The information contained in this document represents components of the legal health record. It is not the complete legal health record.[facility]
--- OUTSIDE RECORDS SUMMARY | 2025-01-26 14:51 | XMS_ITS | Encounter Summary ---
Author Organization [facility] Address 399 [facility] [address] [place] [address] Phone Care Team Providers Care Rolling Down Machine Operator Name Role Phone Orlando Simon MD Primary Care Provider [phone] Noel Nicholson MD Unavailable [phone] Cuong Gonsales MD Unavailable [phone] Prosper Burgess MD Unavailable [phone] Abdi Lopez MD Unavailable [phone] Beau Hernandez MD Unavailable [phone] Encounter Details Date Type Department Care Team (Late st Contact Info) Description 05/29/2024 Procedure Pass [facility], Ct Scan - [address] [address] Social History Tobacco Use Types Packs/Day Years Used Date Smoking Tobacco: Former Cigarettes 1 25 0 08/06/1958 - 08/07/1983 Smokeless Tobacco: Never Comments:quit 1983 Alcohol Use Standard Drinks/Week Comments Yes 0 (1 standard drink = 0.6 oz pure alcohol) couple drinks (beer or liquor) a month, if that ; socially Education Answer Date Recorded Are you [...] Description 04/28/2025 1:30 PM EST Office Visit [facility] Internal Medicine 40 [place] [address] Orlando Simon MD 40 [place] [address] [email or web address] documented as of this encounter Visit Diagnoses Not on filedocumented in this encounter Additional Health Concerns Assessment Noted Time PHQ-2 Depression Total Score: 0 05/07/19 25 6:48 AM EST documented as of this encounter Care Teams Rolling Down Machine Operator Relationship Specialty Start Date End Date Orlando Simon MD 40 [place] [address] PCP - General 01/27/17 Noel Nicholson MD [address] [address] Gastroenterology 04/21/19 Cuong Gonsales MD 673 [place] [address] Dermatology 09/02/19 Prosper Burgess MD 10 [facility] 2 [place] [address] [email or web address] Gastroenterology 02/21/20 Abdi Lopez MD 100 [facility] 120 [place] [address] [email or web address] [email or web address] 02/21/20 Beau Hernandez MD 3640 [facility] 201 [place] [address] Ophthalmology 10/21/24 documented as of this encounter Additional Source Comments The information contained in this document represents components of the legal health record. It is not the complete legal health record.[facility]
--- OUTSIDE RECORDS SUMMARY | 2025-01-26 14:51 | XMS_ITS | Encounter Summary ---
Author Organization [facility] Address 399 [facility] [address] [place] [address] Phone Care Team Providers Care Runner Man Name Role Phone Orlando Simon MD Primary Care Provider [phone] Noel Nicholson MD Unavailable [phone] Cuong Gonsales MD Unavailable [phone] Prosper Burgess MD Unavailable [phone] Abdi Lopez MD Unavailable [phone] Beau Hernandez MD Unavailable [phone] Encounter Details Date Type Department Care Team (Late st Contact Info) Description 08/05/2024 Procedure Pass [facility], [address] [address] Social History Tobacco Use Types Packs/Day Years [...] Description 04/28/2025 1:30 PM EST Office Visit [facility] Internal Medicine 40 [place] [address] Orlando Simon MD 40 [place] [address] [email or web address] documented as of this encounter Visit Diagnoses Not on filedocumented in this encounter Additional Health Concerns Assessment Noted Time PHQ-2 Depression Total Score: 0 05/07/19 25 6:48 AM EST documented as of this encounter Care Teams Runner Man Relationship Specialty Start Date End Date Orlando Simon MD 40 [place] [address] PCP - General 01/27/17 Noel Nicholson MD [address] [address] Gastroenterology 04/21/19 Cuong Gonsales MD 3 [place] [address] Dermatology 09/02/19 Prosper Burgess MD 10 [facility] 2 [place] [address] [email or web address] Gastroenterology 02/21/20 Abdi Lopez MD 100 [facility] 120 [place] [address] [email or web address] Urology 02/21/20 Beau Hernandez MD 3640 [facility] 201 [place] [address] Ophthalmology 10/21/24 documented as of this encounter Additional Source Comments The information contained in this document represents components of the legal health record. It is not the complete legal health record.[facility]
--- OUTSIDE RECORDS SUMMARY | 2025-01-26 14:51 | XMS_ITS | Encounter Summary ---
Author Organization [facility] Address 399 [facility] [address] [place] [address] Phone Care Team Providers Care Pulmonary Care Nurse Name Role Phone Orlando Simon MD Primary Care Provider [phone] Noel Nicholson MD Unavailable [phone] Cuong Gonsales MD Unavailable [phone] Prosper Burgess MD Unavailable [phone] Abdi Lopez MD Unavailable [phone] Beau Hernandez MD Unavailable [phone] Encounter Details Date Type Department Care Team (Late st Contact Info) Description 12/27/2020 Procedure Pass [place] Admitting Dept - Virtual Department [address] [place] [address] Social History Tobacco Use Types Packs/Day Years Used Date Smoking Tobacco: Former Cigarettes 1 25 0 08/06/1958 - 08/07/1983 Smokeless Tobacco: Never Comments:quit 1983 Alcohol Use Standard Drinks/Week Comments Yes 0 (1 standard drink = 0.6 oz pur e alcohol) Sex and Gender Information Value Date Recorded Sex Assigned at Male 08/22/2021 6:58 PM EDT Legal Sex Male 10:08 PM EDT Gender Identity Male 08/22/2021 6:58 PM EDT Sexual Orientation Straight 08/22/2021 6: 58 PM EDT documented as of this encounter Functional Status * Calculated C-SSRS Risk Score (Lifetime/Recent) Answer Date of Assessment Author No Risk Indicated 12/27/2020 11:43 AM EDT Essence Justice RN * [place] Suicide Severity Rating Scale (Screener/Recent Self-Report) Question Answer Date of Assessment Author 1. Wish to be (Past 1 Month) No 12/27/2020 11:43 AM EDT Georgiana Howard RN 2. Non-Specific Active Suici wallace Thoughts (Past 1 Month) No 12/27/2020 11:43 AM EDT Haydee Howard RN 6. Suicidal Behavior (Lifetime) No 11:43 AM EDT Essence Howard RN documented as of this encounter Plan of Treatment Upcoming Encounters Date Type Department Care Team (Late st Contact Info) Description 04/28/2025 1:30 PM EST Office Visit [facility] Internal Medicine 40 [place], [place] [phone] Orlando Simon MD 40 [place] [address] [email or web address] documented as of this encounter Visit Diagnoses Not on filedocumented in this encounter Additional Health Concerns Assessment Noted Time PHQ-2 Depression Total Score: 0 09/02/19 20 3:00 PM EDT documented as of this encounter Care Teams Pulmonary Care Nurse Relationship Specialty Start Date End Date Orlando Simon MD 40 [place] [address] [email or web address] PCP - General 01/27/17 Noel Nicholson MD [address] [address] Gastroenterology 04/21/19 Cuong Gonsales MD 673 [place] [address] Dermatology 09/02/19 Prosper Burgess MD [address] [address] [email or web address] Gastroenterology 02/21/20 Abdi Lopez MD 100 [facility] 120 [place] [address] [email or web address] Urology 02/21/20 Beau Hernandez MD 3640 [facility] 201 [place] [address] Ophthalmology 10/21/24 documented as of this encounter Additional Source Comments The information contained in this document represents components of the legal health record. It is not the complete legal health record.[facility]
--- OUTSIDE RECORDS SUMMARY | 2025-01-26 14:51 | XMS_ITS | Encounter Summary ---
Author Organization [facility] Address 399 [facility] [address] [place] [address] Phone Care Team Providers Care Voice Coach Name Role Phone Orlando Simon MD Primary Care Provider [phone] Noel Nicholson MD Unavailable [phone] Cuong Gonsales MD Unavailable [phone] Prosper Burgess MD Unavailable [phone] Abdi Lopez MD Unavailable [phone] Beau Hernandez MD Unavailable [phone] Encounter Details Date Type Department Care Team (Late st Contact Info) Description 10/18/2024 Telephone [facility] 234 [place] [address] [email or web address] Social History Tobacco Use Types Packs/Day Years [...] Description 04/28/2025 1:30 PM EST Office Visit [facility] Internal Medicine 40 [place] [address] Orlando Simon MD 40 [place] [address] [email or web address] documented as of this encounter Visit Diagnoses Not on filedocumented in this encounter Additional Health Concerns Assessment Noted Time PHQ-2 Depression Total Score: 0 05/07/19 6:48 AM EST documented as of this encounter Care Teams Voice Coach Relationship Specialty Start Date End Date Orlando Simon MD 40 [place] [address] [email or web address] PCP - General 01/27/17 Noel Nicholson MD [address] [address] Gastroenterology 04/21/19 Cuong Gonsales MD 579 [place] [address] Dermatology 09/02/19 Prosper Burgess MD 10 [facility] 2 [place] [address] [email or web address] Gastroenterology 02/21/20 Abdi Lopez MD 100 [facility] 120 [place] [address] [email or web address] Urology 02/21/20 Beau Hernandez MD 3640 [facility] 201 [place] [address] Ophthalmology 10/21/24 documented as of this encounter Additional Source Comments The information contained in this document represents components of the legal health record. It is not the complete legal health record.[facility]
== END 2025-01-26 11:31 | disposition home or self-care (01) ==
LOC: HO.US 11:30
PROVIDERS: PCP Internal Medicine; Visit Provider Surgery Vascular Surgery
DX: I65.23 Occlusion and stenosis of bilateral carotid arteries (principal)
CPT/HCPCS: 93880

== ENCOUNTER → 2025-01-26 11:32 | Outpatient (BNV) | payer MEDICARE, SELFPAY | PROVIDERS: PCP Internal Medicine; Visit Provider Specialist | DX: I65.23 Occlusion and stenosis of bilateral carotid arteries (principal) | CPT/HCPCS: 93880 ==

== ENCOUNTER 2025-02-28 09:40 | Outpatient (AMB) | payer MEDICARE, SELFPAY ==
--- NOTE | 2025-02-28 09:47 | MHC.OFFVIS ---
Intake Visit Reasons: 6 Follow up carotid US 01/27/25 Intake Note: Patient presents for 6 month carotid follow up. Patient's light headedness is still present, believes it is due to his right eye. 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 Accompanied by: Spouse Allergies lisinopril Allergy (Mild, Verified 02/28/25 09:51) Unknown HPI HPI 6 Follow up carotid US 01/27/25: Details: The patient is an 80-year-old male presenting for a follow-up on carotid artery evaluation. The concern regarding his carotids arose after he developed a vitreous detachment in his eye, which he first presented for in July. His workup included a carotid ultrasound and a CT scan in May, as well as a repeat carotid ultrasound on January 26, all of which showed no significant stenosis and were interpreted as normal. The patient reports experiencing lightheadedness and was referred by his primary care provider, Dr. Simon, to an ENT specialist to evaluate his inner ears. He has a rescheduled appointment with the ENT in March. He notes his vision is 20/50 in the affected eye and 20/20 in the other, and the mismatch can sometimes cause headaches. He now presents for follow-up with carotid testing. Review of Systems Const All systems reviewed & are unremarkable except as noted in HPI and below Reports no additional complaints ENT Reports Normal hearing present Card Denies chest pain, Denies chest pain at rest, Denies chest pain with activity and Denies pedal edema Resp Denies cough GI Denies abdominal pain Musc Denies abnormal gait, Denies muscle cramps and Denies radiating pain into limb Skin/Breast Denies skin ulcer and Denies wounds Neuro Reports Normal hearing present and Denies abnormal gait Psych Reports no additional complaints Physical Exam Const General: cooperative, healthy appearing and comfortable Orientation/consciousness: oriented to person, oriented to place and oriented to time HEENT Head: Yes normal to inspection Neck Neck: Yes normal visual inspection Carotids: no bruits Chest Chest palpation & inspection: normal inspection of the chest Resp Effort & Inspection: normal respiratory effort and able to speak in complete sentences Auscultation: clear to auscultation bilaterally, no crackles, no rales, no rhonchi and no wheezes Cardio Rate: regular rate Rhythm: regular rhythm Heart sounds: S1 normal heart sound present and S2 normal heart sound present Bruits: no carotid bruits Peripheral pulses: Peripheral pulses 2+ throughout GI Inspection: Yes normal to inspection Skin Wounds: no wounds Hair: normal Neuro General: oriented to person, oriented to place and oriented to time Cranial nerves: Yes CN's II-XII intact bilaterally and Yes Normal hearing present Cognition (Neuro): normal cognition Motor exam (neuro): 5/5 motor strength present throughout Extrem Other: venous exam: No significant superficial varicosities or spider telangiectasias, minimal edema General: No clubbing, No cyanosis and No edema Psych Appearance: grossly normal Mental Status: mental status grossly normal Speech and movement: Normal speech and movement present Results Reviewed Results Reviewed: Carotid testing dated 01/26/2025 demonstrates bilateral 0-49% stenosis Assessment & Plan Assessment & Plan (1) Carotid stenosis: Code(s): I65.29 - Occlusion and stenosis of unspecified carotid artery Category: Medical Qualifiers: Laterality: bilateral Qualified Code(s): I65.23 - Occlusion and stenosis of bilateral carotid arteries Plan: I reviewed the patient's carotid studies from both May and January, noting they were all normal with no significant stenosis. I reassured the patient that his carotids are in good condition and are not the cause of his lightheadedness. I advised him to continue his lifelong baby aspirin therapy. I will send a letter to his primary care physician, Dr. Simon, to summarize our visit. I informed the patient that he does not need to return for vascular follow-up but can call if new needs arise. Thank you for allowing us to assist in his care. If there are any questions or concerns please do not hesitate to contact us. Coding Level of Care Code Est Pt Level 4 (39273) Diagnoses Bilateral carotid artery stenosis I65.23 Laterality: bilateral
== END 2025-02-28 10:10 | disposition home or self-care (01) ==
LOC: HO.HVS 09:41
PROVIDERS: PCP Internal Medicine; Visit Provider Surgery Vascular Surgery
DX: I65.23 Occlusion and stenosis of bilateral carotid arteries (principal)
CPT/HCPCS: 99214

== ENCOUNTER → 2025-02-28 09:40 | Outpatient (BNVA) | payer MEDICARE, SELFPAY | PROVIDERS: PCP Internal Medicine; Visit Provider Surgery Vascular Surgery | DX: I65.23 Occlusion and stenosis of bilateral carotid arteries (principal) | CPT/HCPCS: 99212 ==